=== PATIENT | male | born 1965 | race Caucasian/White ===

== ENCOUNTER 2018-04-25 17:52 | Emergency (ER) | payer BC | END 2018-04-25 19:32 | disposition home or self-care (01) | LOC: ER 17:52 | DX: S00.512A Abrasion of oral cavity, initial encounter (principal); I10 Essential (primary) hypertension; Z98.890 Other specified postprocedural states; X58.XXXA Exposure to other specified factors, initial encounter; Y93.89 Activity, other specified; Y92.89 Other specified places as the place of occurrence of the external cause; Y99.8 Other external cause status | CPT/HCPCS: 99281; 99282 ==

== ENCOUNTER 2018-05-11 16:36 | Emergency (ER) | payer BC ==
[~2018-05-11] VITALS: Ht 182.9 cm; Wt 88.5 kg
[2018-05-11 16:45] VITALS: BP 165/104
[2018-05-11] MEDS ORDERED: ACETAMINOPHEN 500 MG TABLET PO ONE (17:15)
[2018-05-11] MEDS ORDERED: DOXY100C2 PO (17:20)
--- NOTE | 2018-05-11 17:20 | PHYS DOC ---
Past Medical History Past Medical History: High Cholesterol, Hypertension, Other Additional Past Medical Histor: ulcerative colitis Past Surgical History: Other Additional Past Surgical Histo: ACL repair rt knee Additional Information: CHEWS TOBACCO Alcohol Use: Rarely Drug Use: None Adult General Chief Complaint Chief Complaint: FEVER HPI HPI Patient is a 53 year old M who presents with fever, chills and body aches for the last week. Patient reports he works outside and suspects he may have a tickborne illness. He denies any nausea or vomiting. He reports he has had some diarrhea. No rash or suspicious lesions noted Review of Systems Review of Systems Constitutional: Reports fever or chills [] HENT: Denies nasal congestion or sore throat [] Respiratory: Denies cough or shortness of breath [] Cardiovascular: No chest pain or palpitations GI: Denies abdominal pain, nausea, vomiting. Reports diarrhea [] : Denies dysuria or hematuria [] Musculoskeletal: Reports Arthralgias Integument: Denies rash or skin lesions [] Neurologic: Denies headache, focal weakness or sensory changes [] All other systems were reviewed and found to be within normal limits, except as documented in this note. Current Medications Current Medications Current Medications Medications (Trade) Dose Ordered Sig/Paige Start Time Stop Time Status Last Admin Dose Admin Acetaminophen (Tylenol) 1,000 mg 1X ONCE 05/11/18 17:15 05/11/18 17:16 DC 05/11/18 17:40 1,000 MG Ceftriaxone Sodium (Rocephin Im) 1 gm 1X ONCE 05/11/18 17:30 05/11/18 17:31 DC 05/11/18 17:41 1 GM Allergies Allergies Allergies Coded Allergies Type Severity Reaction Last Updated Verified No Known Drug Allergies 12/13/14 No Physical Exam Physical Exam Constitutional: Well developed, well nourished, no acute distress, non-toxic appearance. [] HENT: Normocephalic, atraumatic, bilateral TMs normal, oropharynx moist, no oral exudates Eyes: PERRLA, EOMI, conjunctiva normal, no discharge. [] Neck: Normal range of motion, no tenderness, supple, no stridor. [] Cardiovascular:Heart rate regular rhythm, no murmur [] Lungs & Thorax: Bilateral breath sounds clear to auscultation [] Skin: Warm, dry, no erythema, no rash. [] Extremities: ROM intact, no edema. [] Neurologic: Alert and oriented X 3, normal motor function, normal sensory function, no focal deficits noted. [] Psychologic: Affect normal, judgement normal, mood normal. [] Current Patient Data Vital Signs Vital Signs Date Time Temp Pulse Resp B/P (MAP) Pulse Ox O2 Delivery O2 Flow Rate FiO2 05/11/18 16:45 99.9 95 18 165/104 (124) 97 Room Air 99.9 EKG EKG [] Radiology/Procedures Radiology/Procedures [] Course & Med Decision Making Course & Med Decision Making Pertinent Labs and Imaging studies reviewed. (See chart for details) Plan: Tickborne illness labs drawn, doxycycline Rx, Tylenol or ibuprofen as needed for pain or fever, return precautions reviewed Neel Disclaimer Neel Disclaimer This electronic medical record was generated, in whole or in part, using a voice recognition dictation system. Departure Departure Impression: Primary Impression: Arthralgia Disposition: 01 HOME, SELF-CARE Condition: STABLE Referrals: NO PCP (PCP) Patient Instructions: Lyme Disease, [place] Spotted Fever Scripts Doxycycline Hyclate (DOXYCYCLINE HYCLATE) 100 Mg Capsule 1 CAP PO BID, #42 CAP Prov: CHANCE ALBA TRAFFIC ASSISTANT 05/11/18 Problem Qualifiers Primary Impression: Arthralgia Joint pain location: unspecified Qualified Codes: M25.50 - Pain in unspecified joint CHANCE ALBA TRAFFIC ASSISTANT May 11, 2018 17:20
[2018-05-11] MEDS ORDERED: cefTRIAXone IM 1 GM VIAL IM ONE (17:30)
[2018-05-14 00:11] LABS: ROCK MTN SF IGG Negative (Negative); ROCKY MTN SF IGM 0.98 index (0.00-0.89)
== END 2018-05-11 18:00 | disposition home or self-care (01) ==
LOC: ER 16:36
DX: M25.50 Pain in unspecified joint (principal); R19.7 Diarrhea, unspecified; E78.00 Pure hypercholesterolemia, unspecified; I10 Essential (primary) hypertension; F17.220 Nicotine dependence, chewing tobacco, uncomplicated
CPT/HCPCS: 36415; 86757; 96372; 99284; J0696